=== PATIENT | male | born 1955 | race Caucasian/White ===

== ENCOUNTER 2016-04-18 09:58 | Inpatient (IN) | payer BC ==
[~2016-04-18 09:58] MED LIST: ASPIR 8181 MG PO; CITALOPRAM PO; DAILY MULTIPLE1 EAC1 PO; FOLVITE-DPS1 MG PO; HABITROL DPS21 MG PO; KLOR-CON PO; LIBRIUM-DPS25 MG PO; LOPRESSOR PO; MAG-OX400 MG PO; NORVASC10 MG PO; PEPCID20 MG PO; PLAVIX75 MG PO; TYLENOL PO; VITAMIN B-1100 MG PO; VITAMIN B-12500 MCG PO; ZOCOR20 MG PO
[2016-04-29] MEDS ORDERED: VITAMIN D400 UNIT PO (13:15)
[2016-04-29] MEDS ORDERED: MAG-OX400 MG PO (13:16)
[2016-04-29] MEDS ORDERED: FOLVITE-DPS1 MG PO (13:16)
[2016-04-29] MEDS ORDERED: NALTREXONE HCL50 MG PO (13:16)
[2016-04-29] MEDS ORDERED: MULTIPLE VITAM1 EACH PO (13:16)
[2016-04-29] MEDS ORDERED: HABITROL DPS7 MG TP (13:17)
[2016-04-29] MEDS ORDERED: VITAMIN B1100 MG PO ×2 (13:18)
== END 2016-04-28 17:45 | DRG 897 ==
DX: F10.239 Alcohol dependence with withdrawal, unspecified (principal); G31.2 Degeneration of nervous system due to alcohol; K76.0 Fatty (change of) liver, not elsewhere classified; I10 Essential (primary) hypertension; K80.20 Calculus of gallbladder without cholecystitis without obstruction; N40.0 Benign prostatic hyperplasia without lower urinary tract symptoms; K40.20 Bilateral inguinal hernia, without obstruction or gangrene, not specified as recurrent; F17.210 Nicotine dependence, cigarettes, uncomplicated; I25.10 Atherosclerotic heart disease of native coronary artery without angina pectoris; K21.9 Gastro-esophageal reflux disease without esophagitis; E78.5 Hyperlipidemia, unspecified; Z79.82 Long term (current) use of aspirin; Z82.49 Family history of ischemic heart disease and other diseases of the circulatory system